=== PATIENT | male | born 1960 | race African-American/Black ===

== ENCOUNTER 2020-09-29 14:34 | Emergency (ER) | payer SELFPAY ==
[~2020-09-29] VITALS: Ht 177.8 cm; Wt 73.0 kg
[2020-09-29 14:42] VITALS: BP 138/81
== END 2020-09-29 16:52 | disposition left against medical advice (07) ==
LOC: ER 14:34
DX: Z53.21 Procedure and treatment not carried out due to patient leaving prior to being seen by health care provider (principal)